=== PATIENT | female | born 1990 | race Caucasian/White ===

== ENCOUNTER 2016-12-19 00:10 | Emergency (ER) | payer OTHER ==
--- NOTE | 2016-12-19 00:18 | EDPHY ---
H & P Stated Complaint: TRIPPED FALL HIT FACE ON GROUND, ETOH TONIGHT HPI/ROS: HPI CHIEF COMPLAINT: Alcohol intoxication, trip and fall, nose injury HISTORY OF PRESENT ILLNESS: This patient 26-year-old female, she presents emergency room intoxicated with alcohol. She states she had multiple liquor beverages this evening. She was walking tripped and fell and fell on her nose. She denies any other areas of injury. Specifically denies head strike. Denies LOC. Denies neck pain. She presents emergency room stating that her nose is swollen she is concerned there may be a laceration. She does tell me her tetanus shot is up-to-date. Past Medical History: Denies medical history Past Surgical History: Denies surgical history Social History: He endorses alcohol this evening, denies drugs or tobacco Family History: Noncontributory ROS REVIEW OF SYSTEMS: A comprehensive 10 point review of systems is otherwise negative aside from elements mentioned in the history of present illness. Exam Constitutional intoxicated, smells of alcohol triage nursing summary reviewed, vital signs reviewed, awake/alert. Eyes normal conjunctivae and sclera, EOMI, PERRLA. HENT nose, no septal hematoma visualized. Nasal bridge swelling, abrasions to the left side of the nose, no visible laceration, midface stable moist mucus membranes, no epistaxis, neck supple/ no meningismus, no raccoon eyes. Respiratory clear to auscultation bilaterally, normal breath sounds, no respiratory distress, no wheezing. Cardiovascular rate normal, regular rhythm, no murmur, no edema, distal pulses normal. Gastrointestinal soft, non-tender, no rebound, no guarding, normal bowel sounds, no distension, no pulsatile mass. Genitourinary no CVA tenderness. Musculoskeletal no midline vertebral tenderness, full range of motion, no calf swelling, no tenderness of extremities, no meningismus, good pulses, neurovascularly intact. Skin pink, warm, & dry, no rash, skin atraumatic. Neurologic awake, alert and oriented x 3, AAOx3, moves all 4 extremities equally, motor intact, sensory intact, CN II-XII intact, normal vision, slurring of her speech smells of alcohol Psychiatric normal mood/affect. Heme/Lymph/Immune no lymphadenopathy. Differential Diagnosis: Includes but is not limited to in a particular order, nasal bone fracture, soft tissue injury, facial contusion, multiple abrasions. Medical Decision Making: Plan for this patient x-ray of the nasal bones. Clean wound to make sure there is not a laceration need to be repaired. Her tetanus shot is up-to-date. She will need a safe ride home. Re-evaluation: Patient's wound of her nose been clean. No visible lacerations appreciated. 0113: I did re-evaluate this patient. She is resting comfortably. Wounds have been cleaned. No laceration need to be repaired. Her x-ray has been performed. I did review her nasal bone x-rays this does show fracture nasal bones. I recommend she follows up with [facility]. She understands to ice her nose. Source: Patient - Personal History LMP (Females 10-55): 8-14 Days Ago Current Tetanus/Diphtheria Vaccine: Yes Current Tetanus Diphtheria and Acellular Pertussis (TDAP): Yes - Medical/Surgical History Hx Asthma: No Hx Chronic Respiratory Disease: No Hx Diabetes: No Hx Cardiac Disease: No Hx Renal Disease: No Hx Cirrhosis: No Hx Alcoholism: No Hx HIV/AIDS: No Hx Splenectomy or Spleen Trauma: No Other PMH: DENIES - Social History Smoking Status: Never smoked Constitutional: Initial Vital Signs Temperature (C) 36.7 C 12/19/16 00:11 Heart Rate 88 12/19/16 00:11 Respiratory Rate 18 12/19/16 00:11 Blood Pressure 146/92 H 12/19/16 00:11 O2 Sat (%) 96 12/19/16 00:11 O2 Delivery Mode Room Air Allergies/Adverse Reactions: No Known Allergies Allergy (Unverified 12/19/16 00:13) Home Medications: Medication Instructions Recorded Levonorgestrel-Ethin Estradiol 1 each PO 12/19/16 [Lutera-28 Tablet] Departure - Departure Disposition: Home, Routine, Self-Care Clinical Impression: Abrasion Nasal contusion Qualifiers: Encounter type: initial encounter Qualified Code(s): S00.33XA - Contusion of nose, initial encounter Nasal bone fracture Qualifiers: Encounter type: initial encounter Fracture type: closed Qualified Code(s): S02.2XXA - Fracture of nasal bones, initial encounter for closed fracture Condition: Good Instructions: Abrasion (ED), Nasal Contusion (ED) Additional Instructions: 1.I do recommend he ice your nose 2. After the swelling goes down if you feel that is cosmetically abnormal either abnormal shape, or crooked could follow up with [facility]. Call their make an appointment. Referrals: NONE *PRIMARY CARE P,. [Unknown] - As per Instructions Echo Ram MD [Medical Doctor] - As per Instructions
[2016-12-19 01:32] VITALS: BP 132/76; PULSE 76; RESP 15; TEMP 97.9; O2SAT 98
== END 2016-12-19 01:35 | disposition home or self-care (01) ==
DX: S02.2XXA Fracture of nasal bones, initial encounter for closed fracture (principal); S00.31XA Abrasion of nose, initial encounter; W01.0XXA Fall on same level from slipping, tripping and stumbling without subsequent striking against object, initial encounter